=== PATIENT | female | born 1945 | race Caucasian/White ===

== ENCOUNTER 2016-07-08 12:47 | Emergency (ER) | payer MEDICARE, BC ==
[2016-07-08] MEDS ORDERED: ONDANSETRON ODT 4 MG TAB ONE (15:29)
== END 2016-07-08 15:39 | disposition home or self-care (01) ==
LOC: ER 12:47
DX: S82.224A Nondisplaced transverse fracture of shaft of right tibia, initial encounter for closed fracture (principal); S82.424A Nondisplaced transverse fracture of shaft of right fibula, initial encounter for closed fracture; X50.1XXA Overexertion from prolonged static or awkward postures, initial encounter; Y92.511 Restaurant or cafe as the place of occurrence of the external cause